=== PATIENT | female | born 1980 | race Caucasian/White ===

== ENCOUNTER 2018-01-11 16:47 | Inpatient (IN) | payer OTHER ==
[~2018-01-11] VITALS: Ht 170.2 cm; Wt 90.0 kg
--- NOTE | ~2018-01-11 | S ---
[facility] [place] [address] SURGICAL PATH RPT PROCEDURE Name: NERY FARMER Room #: 208-P DIS IN M.R.#: [id number] Admission: 01/11/18 Date of : 78 Discharge: 01/13/18 Report #: [id number] Path Case #: [id number] PATHOLOGY REPORT COLLECTION DATE: 01/13/2018 RECEIVED DATE: 01/13/2018 SUBMITTING PHYS: Dr. Faisal Nelson OTHER PHYS: SPECIMEN(S) RECEIVED: A.Duodenum B.Gastritis * * * * * * * * * * * * FINAL DIAGNOSIS: A. "Duodenum," biopsy: - Small bowel / duodenal mucosa with reactive changes including mild acute and chronic inflammation, focal partial villous atrophy, and focal mildly increased intraepithelial lymphocytes. (see comment) B. "Gastritis," biopsy: - Gastric mucosa with mild reactive changes and mild chronic inflammation. - Negative H. pylori immunohistochemical stain (block B1); control reacted appropriately. COMMENT: Within specimen A, the reactive changes may be related to peptic duodenitis. Partially involved and/or evolving celiac sprue cannot be entirely excluded. Correlation with clinical history, endoscopic findings, and additional laboratory data is required. Part B is co-reviewed with Dr. Yonis Gill. (CLW:; 01/14/2018) PATHOLOGIST: Phyllis Siegel M.D. REPORT ELECTRONICALLY SIGNED BY: Phyllis Siegel M.D. DATE/TIME: 01/14/2018 14:55 * * * * * * * * * * * * GROSS PATHOLOGY: A. Received in formalin labeled "Nery Farmer BX of duodenum," are 5 segments of rosas soft tissue measuring 1.4 x 1.9 x 0.2 cm in aggregate dimensions and ranging from 0.4 to 0.5 cm in maximum dimension. The specimen is submitted entirely in cassette A1. B. Received in formalin labeled "Nery Farmer BX of gastritis," are 2 segments of rosas soft tissue measuring 0.9 x 0.2 x 0.3 cm in aggregate dimensions and ranging from 0.4 to 0.5 cm in maximum [address] [address] SURGICAL PATH RPT PROCEDURE Name: NERY FARMER Room #: 208-P [facility] IN M.R.#: [id number] Admission: 01/11/18 Date of : 78 Discharge: 01/13/18 Report #: [id number] Path Case #: [id number] dimension. The specimen is submitted entirely in cassette B1. (TSD; 01/13/2018) CLINICAL HISTORY: Rule out sprue INITIAL CPT CODE(S): A; 20852 B; 49076, 42487 Professional services performed by [facility] [address], [place] [address] Technical services performed by [facility] at [address] [place] [address], [address] [address]. [facility] [address] [address] PHONE: [phone] DIRECTOR: Ambrocio Corral M.D. * * * END OF REPORT * * *
--- NOTE | ~2018-01-11 | CATHLAB ---
[facility] [address] [place] [address] INVASIVE PROCEDURE REPORT Name: NERY GAR Room #: 208-P [facility] IN M.R.#: [id number] Admission: 01/11/18 Attend Phys: Faisal Nelson, Discharge: Date of : 78 Date of Service: 01/12/18 0850 Report #: [id number] THIS REPORT FOR: //name// APPROVED REPORT Study performed: 01/12/2018 07:17:29 Patient Details Patient Status: In-Patient Room #: The patient is a 37 year-old female Event Personnel Nick John Contract Serviceman, Sawyer Clarke RN, Jordana Good Sandifer, David Monitor Procedures Performed Left Heart Cath w/or w/o Coronaries [id number] Indication Chest pain Risk Factors Dysplipidemia , Coronary Artery DiseaseHypertension Previous Procedures/Diagnoses Previous PCI Admission/Lab Medications/Medications given during procedure Aspirin, Lipid Lowering Agents, Beta Gacria Procedure Narrative The Right Groin^ was infiltrated with 1% Lidocaine subcutaneous anesthesia. A PINNACLE 6FR Sheath #[id number] sheath was inserted into the RFA^. Coronary angiography was performed using coronary diagnostic catheters. The right coronary system was accessed and visualized with a JR4 catheter. The left coronary system was accessed and visualized with a JL4 catheter. The left ventricle was accessed and visualized with a PIGTAIL catheter. Left ventricular/Aortic Valve gradient assessed via catheter pullback. Left ventriculogram was performed in 30 degree projection. Closure device was deployed with a 6 Fr MYNXGRIP 6/7F #[id number]. The patient tolerated the procedure well and there were no complications associated with the procedure. There was no hematoma. Intraoperative Conscious Sedation [facility] [address] [place] [address] INVASIVE PROCEDURE REPORT Name: NERY GAR Room #: 208-P [facility] IN ..#: [id number] Admission: 01/11/18 Attend Phys: Faisal Nelson, Discharge: Date of : 78 Date of Service: 01/12/18 0850 Report #: [id number] Sedation start time: 7.51 Case end Time: 8.02 Fentanyl 50 mcg Versed 1.5 mg Fluoro Time: 1.40 minutes Dose: 297 mGy Coronary Angiography The patient's coronary anatomy is right dominant. Diagnostic Cath Left Main Normal left main LAD A previously placed proximal Xience stent was widely patent without restenosis. The LAD is a large vessel that extends to the apex. 30-40% proximal LAD stenosis beyond the stent, similar to previous angiographic assessment Diagonal 1 Small, proximal and single diagonal branch. Angiographically normal Circumflex Large but nondominant and comprised of a single large bifurcating marginal branch OM1 Large bifurcating marginal branch, angiographically normal Right Coronary Large, dominant vessel. Angiographically normal. R PDA Moderate posterior descending, angiographically normal Left Ventriculography The left ventricle is normal in size with normal contractility. The left ventricular ejection fraction is estimated to be 60-65%. Left ventricular wall motion abnormalities are not present. There is no mitral insufficiency. Hemodynamics The aortic pressure is 169/85 mmHg with a mean of 111 mmHg. The left ventricular pressure is 168/11 mmHg with a mean of mmHg. The left ventricular end diastolic pressure is 25 mmHg. There was no gradient across the aortic valve upon pullback. Pullback from the left ventricle to the aorta revealed no gradient across the aortic valve. Conclusion 1. Normal global and regional left ventricular systolic function. Ejection fraction 65% 2. Normal left main 3. Mild to modest 30-40% proximal LAD stenosis, similar to prior angiographic assessment (2014). The proximal Xience 3.25mm x 12mm stent is widely patent [facility] [address] [place] [address] INVASIVE PROCEDURE REPORT Name: NERY GAR Room #: 208-P [facility] IN [facility].#: [id number] Admission: 01/11/18 Attend Phys: Faisal Nelson, Discharge: Date of : 78 Date of Service: 01/12/18 0850 Report #: [id number] 4. Large, nondominant circumflex comprised of a single marginal branch, angiographically normal 5. Dominant right coronary, angiographically normal Recommendations Smoking Cessation Aggressive Medical Therapy <ELECTRONICALLY SIGNED> By: Nick John MD, [facility] 01/12/18 0850 0850 Nick John MD, [facility] /INF
--- NOTE | ~2018-01-11 | EKG ---
[address] [address] ELECTROCARDIOGRAM REPORT Name: NERY GAR Room #: 208-P ADM IN M.R.#: [id number] Admission: 01/11/18 Attend Phys: Faisal Nelson DO Discharge: Date of : 78 Report #: [id number] THIS REPORT FOR: //name// 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
--- NOTE | ~2018-01-11 | EKG ---
[address] [address] ELECTROCARDIOGRAM REPORT Name: NERY GAR Room #: 208-P ADM IN M.R.#: [id number] Admission: 01/11/18 Attend Phys: Faisal Nelson DO Discharge: Date of : 78 Report #: [id number] THIS REPORT FOR: //name// 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
--- NOTE | ~2018-01-11 | P ---
[facility] [place] [address] PROCEDURE REPORT Name: NERY GAR Room #: 208-P [facility] IN M.R.#: [id number] Admission: 01/11/18 Attend Phys: Faisal Nelson DO Discharge: 01/13/18 Date of : 78 Report #: [id number] THIS REPORT FOR: //name// CC: Nick John MD [facility] physician/PCP Faisal Nelson DO DATE OF SERVICE: 01/13/2018 PROCEDURE PERFORMED: Upper endoscopy with biopsies. HISTORY OF PRESENT ILLNESS: The patient is a 37-year-old female who was admitted with chest pain. She has had a previous cardiac stent placed. Cardiac workup including repeat cardiac catheterization was negative. Plan is for upper endoscopy. She denies any dysphagia or odynophagia. She also has had recent nausea and vomiting. PROCEDURE: The risks and benefits of the procedure were explained to the patient, those risks including, but not limited to bleeding, perforation, and the risk of sedation. She understood these risks and gave informed consent. Sedation was given using propofol and ketamine per anesthesia. Next, using a standard Olympus upper endoscope, the scope was placed in the patient's mouth and advanced under direct vision through the esophagus, stomach, and into the second portion of the duodenum. The larynx was normal in appearance. The upper and mid esophagus was normal in appearance. In the distal esophagus, there was grade A erosive esophagitis. No evidence of bleeding. Overall, the gastric mucosa was normal in the fundus, in the body and antrum; however, there was a moderate gastritis with several erosions and a few ulcerations. No evidence of bleeding. Biopsies were obtained to rule out H. pylori. The pylorus was normal and patent. The duodenal bulb, first and second portion were all normal. Biopsies were obtained to rule out the possibility of celiac sprue. The scope was then withdrawn and the procedure terminated. The patient tolerated the procedure well. IMPRESSION: 1. Gastritis with a few small erosions and ulcerations. 2. Grade A erosive esophagitis. 3. Otherwise, normal upper endoscopy. RECOMMENDATIONS: 1. Continue daily PPI therapy. 2. We will add Carafate for the next 2 weeks. 3. Await biopsy results. 4. Advance diet as tolerated. Plan on discharge later today most likely. [address] [address] PROCEDURE REPORT Name: NERY GAR Room #: 208-P [facility] IN .R.#: [id number] Admission: 01/11/18 Attend Phys: Faisal Nelson DO Discharge: 01/13/18 Date of : 78 Report #: [id number] Thank you for allowing me to participate in her care. <ELECTRONICALLY SIGNED> By: Benny Connolly MD 01/23/18 0804 1402 1419 Benny Connolly MD /nt
--- NOTE | ~2018-01-11 | EKG ---
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
--- NOTE | ~2018-01-11 | HC ---
[facility] [place] [address] CONSULTATION Name: NERY GAR Room #: 208-P [facility] IN M.R.#: [id number] Admission: 01/11/18 Attend Phys: Faisal Nelson DO Discharge: Date of : 78 Report #: [id number] THIS REPORT FOR: //name// CC: [facility] physician/PCP Faisal Nelson REASON FOR CONSULTATION: Chest pain. HISTORY OF PRESENT ILLNESS: The patient is a 37-year-old woman with a history of coronary artery disease with prior LAD stenting in 05/2014. At that time, she presented with chest pain and a treadmill exercise study was notable for exercise-induced polymorphic ventricular tachycardia. She has done well up until about a month ago, when she has had recurrence of what she describes as the same midsternal chest pain. This is worse with activity and better with rest. She presented to [facility] Emergency Department, I have reviewed these records. Her EKG was normal. Serial cardiac enzymes have been normal. She was transferred for further evaluation. She continues to have off and on again chest pain with tingling in her left arm. She denies heart failure symptoms including orthopnea, paroxysmal nocturnal dyspnea, or lower extremity edema. No history of palpitations, near syncope or syncope. PAST MEDICAL HISTORY: Medical records have been reviewed and include a history of cholecystectomy, appendectomy, tubal ligation, hypertension, dyslipidemia. SOCIAL HISTORY: She is an ongoing smoker. She works at a local [employer]. FAMILY HISTORY: Notable for mother who at 45 of cancer. REVIEW OF SYSTEMS: All systems negative except as that noted above. PHYSICAL EXAMINATION: GENERAL: Reveals a pleasant woman in no distress. VITAL SIGNS: Blood pressure is 135/80, heart rate of 50 and regular. She is afebrile, 5 feet 7 inches tall, 200 pounds. HEENT: There are neither xanthelasma, subcutaneous xanthomata, oral mucosal or digital cyanosis or kyphoscoliosis present. CHEST: Clear to auscultation and percussion. CARDIAC: Reveals regular rate and rhythm with normal S1, S2. No murmurs, rubs. ABDOMEN: Soft, nontender. EXTREMITIES: Without cyanosis, clubbing or edema. Radial pulses are 2+. NEUROLOGIC: She is alert with a nonfocal exam. LABORATORY DATA: Sodium is 139, potassium 3.8, creatinine 0.7. Troponin of 0. White count 11.9, hemoglobin 12, hematocrit 37, platelet count 283. Chest x-ray is normal. Old granulomatous disease is present. IMPRESSION: [facility] [address] [address] CONSULTATION Name: NERY GAR Room #: 208-P [facility] IN [facility].#: [id number] Admission: 01/11/18 Attend Phys: Faisal Nelson DO Discharge: Date of : 78 Report #: [id number] 1. Chest pain, mixed features for angina. 2. Coronary artery disease with remote LAD stenting. 3. Hypertension. 4. Dyslipidemia. 5. Tobacco dependency. RECOMMENDATIONS: 1. Serial cardiac enzymes. 2. Stress testing versus coronary angiography. Given the nature of her symptoms, which are reminiscent to her pre-stenting pain, I have recommended proceeding with angiography. This procedure has been discussed in detail including its associated risks. After a thorough discussion of the procedure, its risks and alternatives and after answering her questions, she is agreeable to proceeding. <ELECTRONICALLY SIGNED> By: Nick John MD, FACC 01/13/18 0750 0712 0829 Nick John MD, FACC /nt
[~2018-01-11 16:47] MED LIST: ASPIRIN325 PO; BYSTOLIC 5 MG5 M1 PO; CARVEDILOL12.5 MG PO; EFFIENT10 MG PO; HYDROCHLOROTH12.5 M1 PO; IBUPROFEN 400400 M2 PO; LIPITOR20 MG PO; LISINOPRIL10 MG PO; NICOTINE TRANSD14 M1 TOP; NICOTINE TRANSDE7 MG TRANSDERM; NOHOMEMEDICATIONS; TYLENOL325 MG PO
[2018-01-11] MEDS ORDERED: LIPITOR10 MG PO (17:59)
[2018-01-11 18:00] VITALS: BP 154/96
[2018-01-11 18:51] LABS: ABSOLUTE NEUTROPHILS 7.1 thou/uL (1.4-8.2); BASOPHILS 1.2 % (0.0-2.0); HEMATOCRIT 37.6 % (37.0-47.0); HEMOGLOBIN 12.5 gm/dL (12.0-15.0); LYMPHOCYTES 30.6 % (24.0-44.0); MCH 28.7 pg (26.0-34.0); MCHC 33.3 g/dL (28.0-37.0); MCV 86.1 fL (80.0-100.0); MONOCYTES 6.7 % (1.0-8.0); PLATELET COUNT 283 thou/uL (150-400); POLYS 59.5 % (36.0-66.0); RBC 4.37 mil/uL (4.20-5.00); RDW 18.8 % (10.5-14.5); WBC 11.9 thou/uL (4.0-11.0)
[2018-01-11 19:00] LABS: ANION GAP 10 mmol/L (7-16); BUN 14 mg/dL (7-18); CALCIUM 8.5 mg/dL (8.5-10.1); CHLORIDE 107 mmol/L (98-107); CO2 22 mmol/L (21-32); CREATININE 0.7 mg/dL (0.6-1.0); GLUCOSE 96 mg/dL (74-106); POTASSIUM 3.8 mmol/L (3.5-5.1); SODIUM 139 mmol/L (136-145)
[2018-01-11 19:08] LABS: TROPONIN-I < 0.04 ng/mL (<0.06)
[2018-01-11 21:06] VITALS: BP 128/83
[2018-01-11 23:45] VITALS: BP 124/75
[2018-01-12 04:05] VITALS: BP 119/77
[2018-01-12 07:00] VITALS: BP 135/80
[2018-01-12 08:30] VITALS: BP 150/84
[2018-01-12 15:00] VITALS: BP 134/81
[2018-01-12 20:10] VITALS: BP 153/92
[2018-01-12 23:52] VITALS: BP 162/89
[2018-01-13 04:41] VITALS: BP 147/92
[2018-01-13 08:24] VITALS: BP 149/85
[2018-01-13 14:56] VITALS: BP 157/98
[2018-01-13] MEDS ORDERED: PANTOPRAZOLE SO40 M1 PO (15:20)
[2018-01-13] MEDS ORDERED: CARAFATE 1 GM TA1 G1 PO (15:20)
[2018-01-13 15:35] VITALS: BP 157/98
== END 2018-01-13 16:55 | disposition home or self-care (01) | DRG 287 ==
LOC: 2N 16:47 → ENTRNSPT 01-13 16:35 → 2N 01-13 16:55
PROVIDERS: Family Medicine
PROC: 4A023N7 Measurement of Cardiac Sampling and Pressure, Left Heart, Percutaneous Approach (ICD-10-PCS; 2018-01-12)
PROC: 0DB98ZX Excision of Duodenum, Via Natural or Artificial Opening Endoscopic, Diagnostic (ICD-10-PCS; principal; 2018-01-13)
PROC: 0DB68ZX Excision of Stomach, Via Natural or Artificial Opening Endoscopic, Diagnostic (ICD-10-PCS; 2018-01-13)
PROC: B2111ZZ Fluoroscopy of Multiple Coronary Arteries using Low Osmolar Contrast (ICD-10-PCS; 2018-01-13)
PROC: B2151ZZ Fluoroscopy of Left Heart using Low Osmolar Contrast (ICD-10-PCS; 2018-01-13)
DX: I25.110 Atherosclerotic heart disease of native coronary artery with unstable angina pectoris (principal); I10 Essential (primary) hypertension; E78.5 Hyperlipidemia, unspecified; F17.210 Nicotine dependence, cigarettes, uncomplicated; K20.9 Esophagitis, unspecified; K25.9 Gastric ulcer, unspecified as acute or chronic, without hemorrhage or perforation; Z95.5 Presence of coronary angioplasty implant and graft; Z88.8 Allergy status to other drugs, medicaments and biological substances; Z90.49 Acquired absence of other specified parts of digestive tract; Z88.2 Allergy status to sulfonamides; Z82.49 Family history of ischemic heart disease and other diseases of the circulatory system; Z80.9 Family history of malignant neoplasm, unspecified; Z83.3 Family history of diabetes mellitus
CPT/HCPCS: 10081; 62110; 62900; 70005

== ENCOUNTER 2018-12-30 19:39 | Inpatient (IN) | payer OTHER ==
[~2018-12-30] VITALS: Ht 167.6 cm; Wt 94.8 kg
--- NOTE | ~2018-12-30 | HC ---
[facility] [place] [address] CONSULTATION Name: NERY GAR Room #: 200-I DIS IN M.R.#: [id number] Admission: 12/30/18 ������������������ Attend Phys: Montana Kathleen MD Discharge: 12/31/18 ������������������ Date of : 78 Report #: [id number] THIS REPORT FOR: //name// CC: [facility] physician/PCP Montana Kathleen DATE OF SERVICE: 12/31/2018 REASON FOR CONSULTATION: Chest pain. HISTORY OF PRESENT ILLNESS: The patient is a 38-year-old with a history of coronary artery disease with remote stenting of the LAD, this was in May 2014 when she presented with chest discomfort and exercise-induced polymorphic ventricular tachycardia. She has had several admissions for chest pain, the most recent was a year ago when coronary angiography was undertaken. This demonstrated a widely patent proximal LAD stent. Circumflex and right coronaries were normal. There was a 30-40% proximal LAD stenosis similar to 2014. She ultimately underwent upper endoscopy showing esophagitis and gastritis. Carafate was added to her medical regimen for a couple of weeks. Yesterday while at work, she reports feeling very hot and developed mid sternal chest pain. She went out to her car, rolled down the windows. It was cold outside. She felt mildly nauseated. The pain radiated to between her shoulder blades. She went to get something to eat and promptly threw it up. Pain persisted for several hours off and on, but never went away. She went to a nurse practitioner's office where an EKG was normal. She was given aspirin and nitro with improvement in the discomfort. She was referred to [facility] Emergency Department where a chest x-ray, troponin levels and EKG were normal. She had recurrent pain in the Emergency Department, also with a normal EKG. She denies heart failure symptoms, palpitations, near syncope or syncope. Blood pressure readings have been well controlled on combination therapy. MEDICATIONS: Include Wellbutrin 150 mg twice daily, aspirin, lisinopril 10 mg daily, hydrochlorothiazide 12.5 mg daily, Bystolic 20 mg daily, atorvastatin 10 mg daily, albuterol, amlodipine 5 mg daily. PAST MEDICAL HISTORY: Medical records have been reviewed and include a history of cholecystectomy, appendectomy, tubal ligation, coronary artery disease with stenting. SOCIAL HISTORY: She is an ongoing smoker. . FAMILY HISTORY: Notable for cancer. REVIEW OF SYSTEMS: All systems negative except as that noted above. PHYSICAL EXAMINATION: [facility] [address] [place] [address] CONSULTATION Name: NERY GAR Room #: 200-I DIS IN .R.#: [id number] Admission: 12/30/18 ������������������ Attend Phys: Montana Kathleen MD Discharge: 12/31/18 ������������������ Date of : 78 Report #: [id number] GENERAL: A pleasant woman, in no distress. VITAL SIGNS: Blood pressure is 125/75, heart rate of 58 and regular, temperature is 97.8, saturations are 99%. She is afebrile. She is 5 feet 6 inches tall, 209 pounds. HEENT: There are neither xanthelasma, subcutaneous xanthomata, oral mucosal or digital cyanosis or kyphoscoliosis present. CHEST: Clear to auscultation and percussion. CARDIOVASCULAR: Regular rate and rhythm with normal S1, S2. No murmurs or rubs. ABDOMEN: Soft, nontender. EXTREMITIES: Without cyanosis, clubbing or edema. Radial pulses are 2+. NEUROLOGIC: She is alert with a nonfocal exam. LABORATORY DATA: EKG, sinus bradycardia, normal tracing. Troponins have been 0. Total cholesterol 117, LDL 66. Chest x-ray is normal. Creatinine 0.77, sodium 137, potassium 3.2. Normal liver function studies. White count 11.7, hemoglobin 14, hematocrit 43, platelet count 349. IMPRESSION: 1. Chest pain with mixed features for angina. 2. Coronary artery disease with prior left anterior descending artery stenting with fairly recent favorable angiography. 3. Hypertension. 4. Dyslipidemia. 5. Tobacco dependency. 6. Paroxysmal, ischemic ventricular tachycardia. RECOMMENDATIONS: 1. Serial cardiac enzymes. 2. Stress echocardiogram. ��������������������������������������������� ���������������������������������������� By: ��������������������������������������������� 0747 1853 Nick John MD, [facility] /nt
--- NOTE | ~2018-12-30 | H ---
[facility] [place] [address] HISTORY AND PHYSICAL Name: NERY GAR Room #: 200-I ADM IN M.R.#: [id number] Admission: 12/30/18 ������������������ Attend Phys: Marcella Dasilva Discharge: ������������������ Date of : 78 Report #: [id number] THIS REPORT FOR: //name// CC: FAM physician/PCP Marcella Dasilva DATE OF SERVICE: 12/30/2018 ATTENDING PHYSICIAN: Marcella Dasilva M.D. PRIMARY CARE PHYSICIAN: Faisal Wellington M.D. CHIEF COMPLAINT: Chest pain. HISTORY OF PRESENT ILLNESS: The patient is a 38-year-old female with a history of coronary artery disease. She ended up with receiving a stent to her LAD in 2013 when she was only 34 years old. She follows with Dr. John. She last had a cardiac catheterization in December of 2017 after presenting with chest pain after 2 days of vomiting. The heart cath showed mild plaquing with a patent LAD stent. She then had an EGD, which showed gastric erosions and esophagitis, which was felt to be the cause of her pain. The patient states she was at work today and started having severe midsternal chest pain with diaphoresis. She waited a few hours at work with this pain to see if it would go away. She tried to eat some soup but became very nauseated and vomited. The pain did radiate into her back and her shoulder blade area. She ended up driving to her primary care provider's office and due to these complaints, she was given 4 baby aspirin and nitroglycerin and was told to go to the ER. This did resolve her pain. She did have another episode of chest pain at [place] [facility] that resolved with another dose of nitroglycerin. Her initial cardiac workup at [place] was negative including troponin and EKG. Because she had recurrence of the chest pain and due to her cardiac history. She was transferred to [facility] for further cardiac evaluation. She has been resting comfortably since arrival. She does state that she has had some episodes of chest pain intermittently in the last few weeks. These have occurred with rest and with exertion and have been brief and gone away on their own. She has not had any associated shortness of breath with them, although she has been increasingly fatigued in the last few weeks. She states this, today's chest pain was similar to the pain she had in 2013 prior to receiving her stent. She did state that her cardiac workup in 2014 did reveal a negative troponin and EKG but despite that she ended up having an LAD blockage requiring stenting after failing a treadmill stress test in which she had ischemia induced V-tach. She does not have any other complaints at this time. PAST MEDICAL HISTORY: Coronary artery disease, gastritis, ischemia-induced ventricular tachycardia, hypertension, hyperlipidemia and GERD. [facility] [address] [place] [address] HISTORY AND PHYSICAL Name: NERY GAR Room #: 200-I ADM IN M.R.#: [id number] Admission: 12/30/18 ������������������ Attend Phys: Marcella Dasilva Discharge: ������������������ Date of : 78 Report #: [id number] PAST SURGICAL HISTORY: Stent to the LAD in 2013, appendectomy, cholecystectomy, uterine ablation and bilateral tubal ligation. ALLERGIES: SULFA causes an anaphylactic reaction and LEIGH. HOME MEDICATIONS: Albuterol inhaler p.r.n., Lipitor 10 mg p.o. at bedtime, nebivolol 20 mg p.o. daily, amlodipine 5 mg p.o. daily, lisinopril 10 mg daily, naproxen 500 mg b.i.d., hydrocodone 7.5/325 one tab q. 8 hours p.r.n., tramadol 50 mg q. 8 hours p.r.n., bupropion 150 mg p.o. b.i.d., hydrochlorothiazide 12.5 mg p.o. daily, Symbicort 160/4.5 one puff b.i.d. p.r.n. and Protonix 40 mg p.o. daily and aspirin 325 mg p.o. daily. SOCIAL HISTORY: The patient is a current smoker and smokes 10 cigarettes per day, previously she had been smoking up to 2 packs per day for 20 years but has been cutting back in the last few years. She does drink alcohol on a social basis. Denies any daily use. She does smoke marijuana occasionally. She lives at home with her spouse. She works in the [employer]. FAMILY HISTORY: Her mother from lymphoma at the age of 45. Her grandmother also from cancer. She did not know her father. REVIEW OF SYSTEMS: Twelve-point review of systems was reviewed with the patient, otherwise negative unless stated in the HPI. PHYSICAL EXAMINATION: GENERAL: The patient is an alert female, in no acute distress. VITAL SIGNS: Temperature is 36.5, heart rate 54, respirations 18, blood pressure 156/90 and oxygen 99% on room air. HEENT: PERRLA. Sclerae nonicteric. Oral mucosa is pink and moist. NECK: Supple. No JVD noted. CARDIOVASCULAR: Normal S1 and S2. No murmurs, rubs or gallops. RESPIRATORY: Breath sounds are clear bilaterally. No wheezing or rhonchi. Breathing is nonlabored. ABDOMEN: Soft, nontender and nondistended with positive bowel sounds. VASCULAR: No edema noted. Pedal pulses are 2+. NEUROLOGICAL: The patient is alert and oriented x 3. Speech is clear. She is moving all extremities equally. No focal neuro deficits noted. LABORATORY DATA AND DIAGNOSTICS: WBC is 11.7, hemoglobin 14.7 and platelets 349. Sodium 137, potassium 3.2, BUN 10, creatinine 0.7 and glucose 96. LFTs are within normal limits. INR 1.15. Lactate is 1.0. Troponins have been negative x 2. CK is 55. EKG showed sinus rhythm and chest x-ray was negative. ASSESSMENT AND PLAN: 1. Chest pain. This could be possible angina due to recurrence of symptoms. We will consult Cardiology. Continue aspirin daily. Continue to monitor on [facility] [address] [place] [address] HISTORY AND PHYSICAL Name: NERY GAR Room #: 200-I ADM IN .R.#: [id number] Admission: 12/30/18 ������������������ Attend Phys: Marcella Dasilva Discharge: ������������������ Date of : 78 Report #: [id number] Telemetry. Repeat EKG in the morning and check serial. Check 2 more sets of troponin. 2. Hypertension. Blood pressure is stable. Continue lisinopril, Bystolic and Norvasc as at home. 3. Hyperlipidemia. Check a lipid panel and continue statin therapy. 4. Gastroesophageal reflux disease. She does have a history of gastrointestinal related chest pain. Continue Protonix daily. 5. Hypokalemia, replace and repeat labs in the morning. 6. Ongoing tobacco abuse with probable chronic obstructive pulmonary disease. The patient has been advised to quit smoking. Add breathing treatments p.r.n. 7. Deep venous thrombosis prophylaxis, place sequential compression devices. We will continue to follow the patient closely throughout the hospitalization and make changes based on clinical status. ��������������������������������������������� ���������������������������������������� By: ��������������������������������������������� 0414 0507 Zulma Snow, LAUREN /nt
[~2018-12-30 19:39] MED LIST changes: +CARAFATE 1 GM TA1 G1 PO; +LIPITOR10 MG PO; +PANTOPRAZOLE SO40 M1 PO
[2018-12-30 21:00] VITALS: BP 156/90
[2018-12-30] MEDS ORDERED: WELLBUTRIN SR150 MG PO (22:29)
[2018-12-30] MEDS ORDERED: TRAMADOL 50 MG50 MG (22:30)
[2018-12-30] MEDS ORDERED: NORCO 7.5-3251 EACH (22:31)
[2018-12-30] MEDS ORDERED: SYMBICORT160 MCG/4. INH (22:33)
[2018-12-30] MEDS ORDERED: PROAIR RESPICL90 MCG INH (22:34)
[2018-12-30] MEDS ORDERED: NAPROSYN500 MG (22:35)
[2018-12-30] MEDS ORDERED: NORVASC5 MG (22:36)
[2018-12-31 00:15] VITALS: BP 106/63
[2018-12-31 01:39] VITALS: BP 106/63
--- NOTE | 2018-12-31 01:42 | NUR ---
PT ARRIVED UNIT VIA EMS [facility]. PT A/OX4, VITAL SIGNS STABLE, ON ROOM AIR, NO COMPLAINTS OF CHEST PAIN/PAIN. HAND SIGN WRITER INFORMED WHEN PT ARRIVED UNIT. ORDERS RECIEVED AND IMPLEMENTED. CONSENTS SIGNED. ADMISSION ASSESSMENT COMPLETE. PT RESTING, SPOUSE AT BEDSIDE, NO COMPLAINTS OF CHEST PAIN AT THIS TIME. SB ON THE MONITOR. WILL CONTINUE TO CLOSELY MONITOR.
[2018-12-31 05:10] VITALS: BP 125/75
[2018-12-31 05:27] LABS: ANION GAP 10 mmol/L (7-16); BUN 10 mg/dL (7-18); CALCIUM 8.9 mg/dL (8.5-10.1); CHLORIDE 103 mmol/L (98-107); CHOLESTEROL 117 mg/dL (<200); CO2 25 mmol/L (21-32); CREATININE 0.6 mg/dL (0.6-1.0); GLUCOSE 95 mg/dL (74-106); HDL CHOLESTEROL 30 mg/dL (>40); LDL CHOLESTEROL 66 mg/dL (<100); MAGNESIUM 1.9 mg/dL (1.8-2.4); POTASSIUM 4.4 mmol/L (3.5-5.1); SODIUM 138 mmol/L (136-145); TC:HDL 3.9 Ratio (Not establshd); TRIGLYCERIDE 107 mg/dL (<150); VLDL 21 mg/dL (<40)
[2018-12-31 05:32] LABS: SERUM ASSESSMENT Clear
[2018-12-31 07:00] VITALS: BP 116/72
--- NOTE | 2018-12-31 07:16 | NUR ---
ASSUMED CARE OF PT 0700. PT REPORTS NO CHEST PAIN AT THE MOMENT. PT ONLY COMPLAINT IS "I'M REALLY TIRED." PT RESTING IN BED WITH CALL LIGHT IN REACH. AWAITING CARDIOLOGY CONSULT PLAN FOR DAY. WILL CONTINUE TO MONITOR.
--- NOTE | 2018-12-31 08:42 | EKG ---
[place] [address] [facility] [employer] [place] [address] ELECTROCARDIOGRAM REPORT Name: NERY GAR Room #: 200-I ADM IN M.R.#: [id number] ������������������ Admission: 12/30/18 ������������������ Attend Phys: Montana Kathleen MD Discharge: ������������������ Date of : 78 Report #: [id number] ����������������������������������������������������������������� [id number] THIS REPORT FOR: //name// [facility] Test Date: 2018-12-31 Test Time: 07:06:05 Pat Name: NERY GAR Department: Room: 200 I Gender: F [employer]: MARLEN : 1980 Requested By: Zulma Snow Order Number: [id number] MD: Nick John Measurements Intervals Bartlett Rate: 59 P: 21 NM: 156 QRS: 8 QRSD: 88 T: 21 QT: 437 QTc: 433 Interpretive Statements Sinus bradycardia Otherwise normal tracing Baseline wander in lead(s) II,III,aVF Compared to ECG 01/12/2018 06:19:30 No significant change was found Electronically Signed On 12-31-2018 8:42:17 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
--- NOTE | 2018-12-31 09:43 | EXE ---
[facility] [address] [place] [address] STRESS ECHOCARDIOGRAM Name: NERY GAR Room #: 200-I ADM IN M.R.#: [id number] ������������� Admission: 12/30/18 ������������� Attend Phys: Montana Kathleen MD Discharge: ��� ������������� ��� Date of : 78 Date of Service: 12/31/18 0942 �� Report #: [id number] �������� ��������������������������������������������[id number] THIS REPORT FOR: //name// APPROVED REPORT Study performed: 12/31/2018 08:46:52 Exam: Stress Echocardiogram Indication: Chest pain Patient Location: Echo lab Stress Nurse: Heather Horowitz RN Room #: 200 Status: routine Ht: 5 ft 6 in HR: 63 bpm BP: 128/80 mmHg Rhythm: NSR Medical History Medical History: CAD s/p stent, HTN, Hyperlipidemia Cardiac Risk Factors: HTN, DM, Smoking Previous Cardiac Procedures: PCI Exercise History: Sedentary Procedure The patient underwent an Exercise Stress Test using the Don Protocol. Blood pressure, heart rate, and EKG were monitored. An Echocardiogram was performed by electrical power station technician in four stages in quad fashion. At peak stress, four selected images were obtained and placed side by side with resting images for comparison. Stress Test Details Stress Test: Exercise stress testing was performed using a Don protocol. HR Resting HR: 63 bpm Max Heart Rate (APMHR): 181 bpm Max HR Achieved: 155 bpm Target HR (85% APMHR): 153 bpm % of APMHR: 85 Recovery HR: 78 bpm HR response to stress: Normal HR response to stress BP Resting BP: 128/80 mmHg Max BP: 160/84 mmHg Recovery BP: 122/66 mmHg [facility] [address] [place] [address] STRESS ECHOCARDIOGRAM Name: NERY GAR Room #: 200-I [facility] ..#: [id number] ������������� Admission: 12/30/18 ������������� Attend Phys: Montana Kathleen MD Discharge: ��� ������������� ��� Date of : 78 Date of Service: 12/31/18 0942 �� Report #: [id number] �������� ��������������������������������������������[id number] BP response to stress: Normal blood pressure response to stress. ECG Resting ECG: Sinus Rhythm Stress ECG: Sinus Rhythm ST Change: Normal Maximum ST Deviation: 0 mm Arrhythmia: None Recovery ECG: Sinus Rhythm Recovery ST Change: Normal Recovery ST Deviation: 0 mm Recovery Arrhythmia: None Clinical Reason for Termination: Maximal effort Exercise duration: 10 min sec Highest Stage Achieved: Stage 4: 4.2 mph at 16% grade. Exercise capacity: 13.4 METs Overall Exercise Capacity for Age: Normal Angina Score: None Stress ECG Conclusion Clinical: Non-ischemic ECG: Non-ischemic Marie Treadmill Score is 10.0 which is Low risk. Pre-Stress Echo The resting Echocardiogram showed normal left ventricular contractility with an estimated Ejection Fraction of about >55%. Post-Stress Echo The stress Echocardiogram showed normal left ventricular contractility with an estimated Ejection Fraction of about 65-70%. Clinical Normal augmentation of myocardial wall segments using a 17 segment model. Conclusion Clinical Response: Non-ischemic Exercise Capacity: Average Stress ECG Response: Non-ischemic Stress Echo Images: Non-ischemic The left ventricle is normal in size and wall thickness in both the rest and stress images. Normal stress echocardiogram with maximal exercise stress. [facility] [address] [place] [address] STRESS ECHOCARDIOGRAM Name: NERY GAR Room #: 200-I ADM IN .R.#: [id number] ������������� Admission: 12/30/18 ������������� Attend Phys: Montana Kathleen MD Discharge: ��� ������������� ��� Date of : 78 Date of Service: 12/31/18941 �� Report #: [id number] �������� ��������������������������������������������[id number] Other Information Study Quality: Good <Conclusion> The left ventricle is normal in size and wall thickness in both the rest and stress images. Normal stress echocardiogram with maximal exercise stress. ��������������������������������������������� <ELECTRONICALLY SIGNED> ���������������������������������������� By: Nick John MD, FACC ��������������������������������������������� 12/31/18941 1 1 Nick John MD, FAC /INF
[2018-12-31] MEDS ORDERED: ASPIRIN325 PO (14:40)
[2018-12-31 15:48] VITALS: BP 125/75
--- NOTE | 2019-01-01 16:07 | PATH ---
[facility] [address] [place] [address] PATHOLOGY RPT PROCEDURE Name: NERY FARMER Room #: 200-I DIS IN M.R.#: [id number] ������������������ Admission: 12/30/18 ������������������ Date of : 78 Discharge: 12/31/18 Report #: [id number] Path Case #: [id number] [facility] Accession Number: [id number] . 01 Material submitted: . BX GASTRITIS R/O H. PYLORI, EVALUATE EROSIVE GASTRITIS . 01 Clinical history: . Pre-OP DX: Non-cardiac chest pain Post-OP DX: Gastritis Evaluate for erosive gastritis . 02 Diagnosis: Gastric mucosa, gastritis rule out H. pylori, endoscopic biopsy: - Moderate reactive gastropathy associated with fibrotic lamina propria. - Negative for intestinal metaplasia or atrophy. - Negative for Helicobacter pylori (properly controlled immunohistochemical stain performed). (IUV:pit 01/01/2019) QTP/01/01/2019 . 02 Electronically signed: . Selina Jo MD, Pathologist NPI- [id number] . 01 Gross description: . Received in formalin labeled "Nery Farmer, BX gastritis, rule out H. pylori," are 2 segments of rosas soft tissue measuring 0.9 x 0.3 x 0.3 cm in aggregate dimensions and ranging from 0.4 to 0.5 cm in maximum dimension. The specimen is submitted entirely in cassette A1. (TSD; 12/31/2018) TOB/TOB . 02 Pathologist provided ICD-10: K31.9 . 02 CPT . 115501, I68216 Specimen Comment: A courtesy copy of this report has been sent to Specimen Comment: [phone], . Specimen Comment: Report sent to and Performed at: [address], [place], [place] [id number] MD Nazario Shen MD Phone: [phone] Performed at: [address] [address] PATHOLOGY RPT PROCEDURE Name: NERY FARMER Room #: 200-I DIS IN M.R.#: [id number] ������������������ Admission: 12/30/18 ������������������ Date of : 78 Discharge: 12/31/18 Report #: [id number] Path Case #: [id number] [address] [place], [place] [id number] MD Selina Jo MD Phone: [phone]
== END 2018-12-31 16:16 | disposition home or self-care (01) | DRG 392 ==
LOC: 2N 19:39 → ENTRNSPT 12-31 09:38 → EDTRNSPTSTS 12-31 09:41 → 2N 12-31 16:16
PROVIDERS: Nurse Practitioner Acute Care; ADMIT Internal Medicine
PROC: 0DB68ZX Excision of Stomach, Via Natural or Artificial Opening Endoscopic, Diagnostic (ICD-10-PCS; principal; 2018-12-31)
DX: K29.70 Gastritis, unspecified, without bleeding (principal); I47.2 Ventricular tachycardia; I25.10 Atherosclerotic heart disease of native coronary artery without angina pectoris; E78.5 Hyperlipidemia, unspecified; I10 Essential (primary) hypertension; K21.9 Gastro-esophageal reflux disease without esophagitis; E87.6 Hypokalemia; F12.90 Cannabis use, unspecified, uncomplicated; F17.210 Nicotine dependence, cigarettes, uncomplicated; R13.10 Dysphagia, unspecified; K44.9 Diaphragmatic hernia without obstruction or gangrene; I25.119 Atherosclerotic heart disease of native coronary artery with unspecified angina pectoris; Z90.49 Acquired absence of other specified parts of digestive tract; Z95.5 Presence of coronary angioplasty implant and graft; Z88.2 Allergy status to sulfonamides; Z80.7 Family history of other malignant neoplasms of lymphoid, hematopoietic and related tissues; Z83.3 Family history of diabetes mellitus; Z82.49 Family history of ischemic heart disease and other diseases of the circulatory system; Z85.41 Personal history of malignant neoplasm of cervix uteri; Z79.899 Other long term (current) drug therapy
CPT/HCPCS: 10081; 62110; 62900; 70005

== ENCOUNTER → 2020-11-22 | Outpatient (CLI) | payer OTHER ==
[~2020-11-22] MED LIST changes: +NAPROSYN500 MG; +NORCO 7.5-3251 EACH; +NORVASC5 MG; +PROAIR RESPICL90 MCG INH; +SYMBICORT160 MCG/4. INH; +TRAMADOL 50 MG50 MG; +WELLBUTRIN SR150 MG PO
== END ==
LOC: SJCVCIMAG 08:22
PROVIDERS: ATTEND Internal Medicine
DX: I25.10 Atherosclerotic heart disease of native coronary artery without angina pectoris (principal); I25.2 Old myocardial infarction; Z95.5 Presence of coronary angioplasty implant and graft